=== PATIENT | female | born 2000 | race Caucasian/White ===

== ENCOUNTER 2021-10-31 03:17 | Emergency (ER) | payer OTHER ==
[~2021-10-31] VITALS: Ht 160 cm; Wt 53.5 kg
[2021-10-31] MEDS ORDERED: NS 1,000 ML IV ONE (07:20)
[2021-10-31 07:49] LABS: APPEARANCE, URINE CLEAR (CLEAR); BACTERIA, URINE AUTO 1+ (NEGATIVE); BASO % 0.4 % (0.0-1.0); BILIRUBIN, URINE AUTO NEGATIVE (NEGATIVE); BLOOD, URINE BLOOD NEGATIVE (NEGATIVE); COLOR, URINE STRAW (YELLOW); EOS % 0.2 % (0.0-3.0); GLUCOSE, URINE (UA) AUTO NEGATIVE (NEGATIVE); HEMATOCRIT 40.2 % (36.0-47.0); HEMOGLOBIN 13.6 g/dl (12.0-15.5); KETONE, URINE AUTO NEGATIVE (NEGATIVE); LEUKOCYTE ESTERASE, URINE AUTO NEGATIVE (NEGATIVE); LYMPH # 1.9 10^3/uL (1.5-5.0); LYMPH % 20.5 % (24.0-44.0); MEAN CORPUSCULAR HEMOGLOBIN 32.5 pg (27.0-33.0); MEAN CORPUSCULAR HGB CONC 33.8 g/dl (32.0-36.5); MEAN CORPUSCULAR VOLUME 96.2 fl (80.0-96.0); MONO # 0.5 10^3/uL (0.0-0.8); MONO % 5.9 % (2.0-8.0); NEUTROPHILS # 6.6 10^3/uL (1.5-8.5); NEUTROPHILS % 72.6 % (36.0-66.0); NITRITE, URINE AUTO NEGATIVE (NEGATIVE); PLATELET COUNT, AUTOMATED 265 10^3/uL (150-450); PROTEIN, URINE AUTO NEGATIVE (NEGATIVE); RBC, URINE AUTO 0 /HPF (0-3); RED BLOOD COUNT 4.18 10^6/uL (4.00-5.40); SPECIFIC GRAVITY URINE AUTO 1.003 (1.002-1.035); SQUAMOUS EPITHELIAL CELL UR AU 1 /HPF (0-6); UROBILINOGEN, URINE AUTO 0.2 mg/dL (0.0-2.0); WBC, URINE AUTO 0 /HPF (0-3)
[2021-10-31 08:21] LABS: ALBUMIN 3.8 GM/DL (3.2-5.2); BILIRUBIN,DIRECT 0.2 MG/DL (0.0-0.2); BILIRUBIN,TOTAL 0.4 MG/DL (0.2-1.0); TOTAL PROTEIN 7.4 GM/DL (6.4-8.2)
[2021-10-31 09:15] LABS: GC DNA AMPLIFICATION NEGATIVE (NEGATIVE)
[2021-10-31 10:00] VITALS: BP 112/58
== END 2021-10-31 10:13 | disposition home or self-care (01) ==
LOC: M ED 03:17
DX: O99.891 Other specified diseases and conditions complicating pregnancy (principal); R10.9 Unspecified abdominal pain; R19.7 Diarrhea, unspecified; O34.81 Maternal care for other abnormalities of pelvic organs, first trimester; N83.201 Unspecified ovarian cyst, right side; Z3A.00 Weeks of gestation of pregnancy not specified

== ENCOUNTER 2022-06-25 20:09 | Outpatient (CLI) | payer OTHER ==
[~2022-06-25] VITALS: Ht 160 cm; Wt 64.4 kg
[2022-06-25 20:33] VITALS: BP 120/75
[2022-06-25] MEDS ORDERED: diphenhydrAMINE 50MG CAP PO ONE (23:00)
== END 2022-06-25 22:57 | disposition home or self-care (01) ==
LOC: M LDO 20:09
PROVIDERS: ATTEND Obstetrics & Gynecology
DX: O47.1 False labor at or after 37 completed weeks of gestation (principal); Z3A.39 39 weeks gestation of pregnancy; O99.343 Other mental disorders complicating pregnancy, third trimester; F32.A Depression, unspecified; Z79.899 Other long term (current) drug therapy
CPT/HCPCS: 59025; G0463

== ENCOUNTER 2022-06-27 07:52 | Inpatient (IN) | payer OTHER ==
[~2022-06-27] VITALS: Ht 160 cm; Wt 63.4 kg
[2022-06-27] VITALS (30 sets, daily range): BP systolic 101–137; BP diastolic 52–77
[2022-06-27] MEDS ORDERED: AMOX875T PO (08:40)
[2022-06-27] MEDS ORDERED: PRENTAB9 PO (08:40)
[2022-06-27] MEDS ORDERED: HOME MED LIST COMPLETE! XX SCH (08:40)
[2022-06-27] MEDS ORDERED: ZOLO100T PO (08:40)
[2022-06-27] MEDS ORDERED: PENICILLIN G POTASSIUM 5 MU IV 5 MU in D5W MINI-BAG PLUS 100 ML IV STA (10:17)
[2022-06-27 10:19] LABS: HEMATOCRIT 35.3 % (36.0-47.0); HEMOGLOBIN 11.7 g/dl (12.0-15.5); MEAN CORPUSCULAR HEMOGLOBIN 32.9 pg (27.0-33.0); MEAN CORPUSCULAR HGB CONC 33.1 g/dl (32.0-36.5); MEAN CORPUSCULAR VOLUME 99.2 fl (80.0-96.0); PLATELET COUNT, AUTOMATED 188 10^3/uL (150-450); RED BLOOD COUNT 3.56 10^6/uL (4.00-5.40); WHITE BLOOD COUNT 9.3 10^3/uL (4.0-10.0)
[2022-06-27] MEDS ORDERED: METHYLERGONOVINE MALEATE 0.2 MG/ML VIAL (J2210) IM PRN (10:20)
[2022-06-27] MEDS ORDERED: OXYTOCIN DRIP 30 UNITS in IV 1 EA IV PRN ×4 (10:20)
[2022-06-27] MEDS ORDERED: LIDOCAINE 1% MDV 20ML VIAL INFIL PRN (10:20)
[2022-06-27] MEDS ORDERED: TRANEXAMIC ACID INJection 1,000 MG in NS 100 ML IV PRN (10:20)
[2022-06-27] MEDS: miSOPROStol 25MCG 1/4 TABLET PO SCH ×2 (11:07→15:13)
[2022-06-27] MEDS: LR 1,000 ML IV SCH ×3 (11:07→23:58)
[2022-06-27] MEDS: CALCIUM CARBONATE 500 MG CHEW U/D PO PRN ×2 (11:37→15:37)
[2022-06-27] MEDS: PEN G POT 3,000,000 UNIT/50 ML 3,000,000 UNIT in IV 1 EA IV SCH ×3 (15:14→23:53)
[2022-06-27] MEDS ORDERED: OXYTOCIN DRIP 30 UNITS in IV 1 EA IV SCH (20:10)
[2022-06-27] MEDS ORDERED: LR 500 ML IV PRN (21:55)
[2022-06-27] MEDS ORDERED: NALOXONE INJ 0.4MG/1ML VIAL IV PRN (21:55)
[2022-06-27] MEDS ORDERED: EPIDURAL/PCA KEYS XX PRN (21:55)
[2022-06-27] MEDS ORDERED: ePHEDrine SULFATE 25 MG/5 ML(5MG/ML) SYRINGE IVP PRN (21:55)
[2022-06-27] MEDS ORDERED: ONDANSETRON 4MG 2ML VIAL IV PRN (21:55)
[2022-06-27] MEDS ORDERED: diphenhydrAMINE 50MG/ML VIAL IV PRN (21:55)
[2022-06-27] MEDS: FENTANYL/ROPIVACAINE/NACL BAG 100 ML EPIDURAL SCH (22:28)
[2022-06-28] VITALS (28 sets, daily range): BP systolic 103–139; BP diastolic 57–84
[2022-06-28] MEDS: LR 1,000 ML IV SCH (03:19)
[2022-06-28] MEDS: PEN G POT 3,000,000 UNIT/50 ML 3,000,000 UNIT in IV 1 EA IV SCH (04:25)
[2022-06-28] MEDS: FENTANYL/ROPIVACAINE/NACL BAG 100 ML EPIDURAL SCH (04:37)
[2022-06-28 05:32] LABS: CORD GAS ABE V -6.9; CORD GAS HCO3 V 20.4 MEQ/L; CORD GAS PCO2 V 47.3 mmHg; CORD GAS PH V 7.253 UNITS; CORD GAS PO2 V 35.3 mmHg; CORD GAS SBC V 18.4 MEQ/L; CORD GAS TCO2 V 21.9 MEQ/L
[2022-06-28 05:34] LABS: CORD GAS ABE A -8.3; CORD GAS HCO3 A 23.8 MEQ/L; CORD GAS O2 SAT A 60.6 %; CORD GAS PCO2 A 80.5 mmHg; CORD GAS PH A 7.088 UNITS; CORD GAS PO2 A 28.1 mmHg; CORD GAS SBC A 17.1 MEQ/L; CORD GAS TCO2 A 26.2 MEQ/L
[2022-06-28] MEDS ORDERED: LR 1,000 ML IV SCH (05:50)
[2022-06-28] MEDS ORDERED: METHYLERGONOVINE MALEATE 0.2 MG/ML VIAL (J2210) IM PRN (05:50)
[2022-06-28] MEDS ORDERED: OXYTOCIN DRIP 30 UNITS in IV 1 EA IV SCH (05:50)
[2022-06-28] MEDS ORDERED: RHOGAM 300MCG (1500IU) INJ IM SCH (05:50)
[2022-06-28] MEDS ORDERED: DOCUSATE SODIUM 100MG CAPSULE PO PRN (05:50)
[2022-06-28] MEDS ORDERED: DIBUCAINE 1% OINTMENT 30GM TOP PRN (05:50)
[2022-06-28] MEDS: ACETAMINOPHEN 500 MG TAB PO SCH ×3 (06:31→18:28)
[2022-06-28] MEDS: IBUPROFEN 800 MG TAB PO SCH ×3 (06:31→21:31)
[2022-06-28] MEDS ORDERED: PRENATAL VITAMINS CHEWABLE TABLET PO SCH (09:00)
[2022-06-28] MEDS: SERTRALINE 100 MG TAB PO SCH (09:48)
[2022-06-28] MEDS: PRENATAL VITAMINS CHEWABLE TABLET PO SCH (09:48)
[2022-06-29] MEDS: ACETAMINOPHEN 500 MG TAB PO SCH ×4 (00:40→17:26)
[2022-06-29] MEDS: IBUPROFEN 800 MG TAB PO SCH ×3 (06:21→22:00)
[2022-06-29 06:46] LABS: HEMATOCRIT 33.1 % (36.0-47.0); HEMOGLOBIN 10.9 g/dl (12.0-15.5); MEAN CORPUSCULAR HEMOGLOBIN 33.5 pg (27.0-33.0); MEAN CORPUSCULAR HGB CONC 32.9 g/dl (32.0-36.5); MEAN CORPUSCULAR VOLUME 101.8 fl (80.0-96.0); PLATELET COUNT, AUTOMATED 178 10^3/uL (150-450); RED BLOOD COUNT 3.25 10^6/uL (4.00-5.40)
[2022-06-29] MEDS: SERTRALINE 100 MG TAB PO SCH (09:20)
[2022-06-29] MEDS: PRENATAL VITAMINS CHEWABLE TABLET PO SCH (09:20)
[2022-06-29 18:00] VITALS: BP 115/60
[2022-06-30 06:00] VITALS: BP 117/68
[2022-06-30] MEDS: ACETAMINOPHEN 500 MG TAB PO SCH ×2 (06:03)
[2022-06-30] MEDS: IBUPROFEN 800 MG TAB PO SCH (07:25)
[2022-06-30] MEDS: PRENATAL VITAMINS CHEWABLE TABLET PO SCH (08:47)
[2022-06-30] MEDS: SERTRALINE 100 MG TAB PO SCH (08:47)
[2022-06-30] MEDS ORDERED: MEASLES,MUMPS,RUBELLA VACCINE INJ (MMR-II) SC.IMMUN ONE (09:00)
== END 2022-06-30 12:25 | disposition home or self-care (01) | DRG 807 ==
LOC: M LDI 07:52 → M OBS 06-28 07:15
PROVIDERS: ADMIT Obstetrics & Gynecology; ATTEND Obstetrics & Gynecology
PROC: 3E033VJ Introduction of Other Hormone into Peripheral Vein, Percutaneous Approach (ICD-10-PCS; 2022-06-27)
PROC: 10E0XZZ Delivery of Products of Conception, External Approach (ICD-10-PCS; principal; 2022-06-28)
PROC: 0HQ9XZZ Repair Perineum Skin, External Approach (ICD-10-PCS; 2022-06-28)
DX: O69.89X0 Labor and delivery complicated by other cord complications, not applicable or unspecified (principal); Z37.0 Single live birth; Z3A.39 39 weeks gestation of pregnancy; O99.344 Other mental disorders complicating childbirth; F32.A Depression, unspecified; O99.824 Streptococcus B carrier state complicating childbirth; O69.81X0 Labor and delivery complicated by cord around neck, without compression, not applicable or unspecified; O70.0 First degree perineal laceration during delivery